=== PATIENT | male | born 1950 | race Caucasian/White ===

== ENCOUNTER 2017-05-28 09:41 | Outpatient (CLI) | payer MEDICARE ==
--- NOTE | 2017-05-28 13:55 | MRI ---
NONCONTRAST ENHANCED MRI CERVICAL SPINE: HISTORY: Patient complaining of neck pain and bilateral hand pain and arm numbness. TECHNIQUE: Multiplanar, multisequence, noncontrast enhanced MRI of the cervical spine obtained. FINDINGS: Images demonstrate a left subcutaneous lipoma, measuring approximately 5.4 x 3.3 cm, within the subcu taneous fat and the left trapezius muscle. The spinal cord demonstrates no evidence of significant cord masses. A small amount of edema is seen in the C3-C4 central cord, compatible with disk osteophyte compression. C1-C2 and C2-C3: Unremarkable. C3-C4: There is a broad-based central disk osteophyte complex compressing the thecal sac, resulting in moderate to severe central spinal stenosis with some mild edema in the central cord at C3-C4. The re is moderate to severe bilateral C3-C4 neural foraminal narrowing due to uncovertebral osteophyte h ypertrophy. C4-C5: Disk desiccation is seen. There is a broad-based disk osteophyte complex centrally, compress ing the thecal sac, resulting in a moderate degree of thecal sac and minimal cord compression. there is moderate bilateral C4-C5 neural foraminal narrowing due to uncovertebral osteophyte hypertrophy. C5-C6: Disk desiccation is seen. There is a broad-based disk osteophyte complex centrally, compress ing the thecal sac. This results in a moderate degree of central and mild left C5-C6 lateral recess stenosis. The right neural foramen is patent. There is moderate left C5-C6 neural foraminal narrowi ng, due to uncovertebral osteophyte hypertrophy. C6-C7: Disk desiccation is seen. There is a broad-based disk osteophyte complex centrally, resultin g in a mild but not significant degree of central stenosis. There is moderate bilateral C6-C7 neural foraminal narrowing due to uncovertebral osteophyte hypertrophy. C7-T1: The central canal is patent. Moderate bilateral C7-T1 neural foraminal narrowing is seen due to uncovertebral osteophyte hypertrophy. IMPRESSION: Multilevel central disk osteophyte complexes. The most significant degree of stenosis appears to be C3-C4 with some stenosis also seen at C4-C5. Multilevel neural foraminal narrowing is also seen. POS: [facility]
== END 2017-05-28 09:42 | disposition home or self-care (01) ==
LOC: MRI 09:41
PROVIDERS: ATTEND Family Medicine
DX: M54.2 Cervicalgia (principal); M48.02 Spinal stenosis, cervical region
CPT/HCPCS: 72141

== ENCOUNTER 2017-07-20 11:04 | Outpatient (CLI) | payer MEDICARE ==
--- NOTE | 2017-07-20 12:25 | RAD ---
FOUR VIEWS CERVICAL SPINE: INDICATIONS: Preoperative evaluation of the cervical spine with history of neck pain and bilateral hand numbness. COMPARISON: MRI cervical spine dated 05/28/2017. FINDINGS: The cervical spine is evaluated to the T1 level, on the Swimmer's lateral projection. There is sligh t anterior translation of C4 on C5 that is accentuated with flexion and reduced with extension. Ther e is advanced disk degenerative disease at C5-C6 and C6-C7. Prevertebral soft tissues are within nor mal limits. No acute fracture is evident. Lateral masses are symmetric. IMPRESSION: Moderate multilevel spondylosis of the cervical spine with slight anterior translation of C4 on C5 th at accentuates with flexion and reduces with extension. POS: [facility]
== END 2017-07-20 11:05 | disposition home or self-care (01) ==
LOC: TBSIIMAG 11:04
PROVIDERS: ATTEND Neurological Surgery
DX: M54.2 Cervicalgia (principal); M47.812 Spondylosis without myelopathy or radiculopathy, cervical region
CPT/HCPCS: 72040

== ENCOUNTER 2017-09-03 08:55 | Outpatient (CLI) | payer MEDICARE ==
[2017-09-03 10:21] LABS: #Eosinphils 0.4 thou/uL (0.0-0.7); #Lymphocytes 1.6 thou/uL (1.20-3.40); #Monocytes 0.6 thou/uL (0.11-0.59); #Neutrophils 8.6 thou/uL (1.40-6.50); %Basophils 0.3 % (0.0-1.0); %Eosinophils 3.2 % (0.0-10.0); %Lymphocytes 14.3 % (21.0-51.0); %Monocytes 5.6 % (0.0-10.0); %Neutrophils 76.7 % (42.0-75.0); Hemoglobin 16.6 g/dL (14.0-18.0); Mean Corpuscular HGB CONC 33.9 g/dL (32.0-36.0); Mean Corpuscular Hemoglobin 30.4 pg (27.0-31.0); Mean Corpuscular Volume 89.7 fl (80.0-94.0); Mean Platelet Volume 6.9 fL (7.4-10.4); Platelet Count 328 thou/uL (130-400); RBC Distribution Width 11.7 % (11.5-14.5); Red Blood Cell (RBC) Count 5.45 mill/uL (4.70-6.10); White Blood Cell (WBC) Count 11.2 thou/uL (4.8-10.8)
[2017-09-03 10:27] LABS: PTT 29.8 SEC (22.9-36.1); Prothrombin Time 13.2 SEC (12.0-14.7)
[2017-09-03 10:39] LABS: Anion Gap 12 mmol/L (10-20); BUN (Urea Nitrogen) 15 mg/dL (8.4-25.7); Calc. Creatinine Clearance 0 mL/min (70-130); Calcium 9.7 mg/dL (7.8-10.44); Carbon Dioxide 26 mmol/L (23-31); Chloride 104 mmol/L (98-107); Estimated GFR-MDRD Greater than 90; Glucose 119 mg/dL (80-115); Potassium 4.4 mmol/L (3.5-5.1); Sodium 138 mmol/L (136-145)
--- NOTE | 2017-09-11 19:45 | EKG ---
Test Reason : Blood Pressure : / mmHG Vent. Rate : 059 BPM Atrial Rate : 059 BPM P-R Int : 210 ms QRS Dur : 106 ms QT Int : 396 ms P-R-T Axes : 047 -67 051 degrees QTc Int : 392 ms Sinus bradycardia with 1st degree A-V block Left anterior fascicular block Inferior infarct (cited on or before 22-NOV-2016) Cannot rule out Anteroseptal infarct , age undetermined Abnormal ECG When compared with ECG of 22-NOV-2016 11:53, No significant change was found Confirmed by GAVI WHITLEY (2) on 09/11/2017 7:44:54 PM Referred By: RUFINO Confirmed By:GAVI WHITLEY
== END 2017-09-03 08:56 | disposition home or self-care (01) ==
LOC: LABBT 08:55
PROVIDERS: ATTEND Neurological Surgery
DX: Z01.810 Encounter for preprocedural cardiovascular examination (principal); Z01.812 Encounter for preprocedural laboratory examination
CPT/HCPCS: 80048; 85025; 85610; 85730; 93005; 93010

== ENCOUNTER 2017-09-05 05:36 | Day surgery (SDC) | payer MEDICARE ==
[2017-09-03 09:21] VITALS: BMI 32.9
--- NOTE | 2017-09-04 21:54 | HP ---
HISTORY OF PRESENT ILLNESS: Mr. Mojica is a 67-year-old male that presents with back pain, dulln ess to sensation in his bilateral hands and has been off balance with heel to toe walk. He has had s ome loss of dexterity in his hands and has had mild weakness in his intrinsic hand muscles. These sy mptoms have been going on for several months, but it seemed to be getting worse. There is nothing th at seems to relieve his symptoms. He is also spastic in the muscles of the lower extremities. He al so often gets lightheaded when extending his neck and looking up. He is mildly hyperreflexic on exam in the upper and lower extremities. He has positive clonus in the feet. Positive Babinski sign. Anastacia milan has been off balance for the past several months. Of note, he has a large lipoma on the left poste rior neck. IMAGING: MRI of the cervical spine at [facility]. REVIEW OF SYSTEMS: Ten-point review of systems completed is otherwise negative unless stated in the above HPI. PAST MEDICAL HISTORY: Hypertension, depression, neuropathy, coronary artery disease, stents, dyslipi demia, alcoholism and ankle fracture. PAST SURGICAL HISTORY: Includes right ankle surgery x2, stents coronary arteries in 2015. HOSPITALIZATIONS: See above. FAMILY HISTORY: Father is , diagnosed with cancer. Mother is , diagnosed with unkno wn. Mother of congestive heart failure. Brother had heart attack at age 60. SOCIAL HISTORY: The patient is a former smoker for 40 years. He quit in 2004. He smoked 1 pack per day. He started drinking whiskey in 2005 and admits to drinking a half gallon every 3 days. 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 Living situation: The patient lives with friend. MEDICATIONS: 1. Taking clonidine HCL 0.1 mg tablet 1 tab orally once a day. 2. Aspirin 81 mg. 3. Ibuprofen 200 mg tablet 1 tablet q.12 hours. 4. Ramipril 10 mg 1 capsule twice a day. 5. Metoprolol tartrate 25 mg capsule twice a day. 6. Pantoprazole sodium 40 mg capsule delayed release 1 tablet orally once a daily. 7. Citalopram hydrobromide 10 mg tablet 1 tablet orally once a day. 8. Atorvastatin calcium 20 mg tablet 1 tablet orally once a day. 9. Isosorbide mononitrate ER 30 mg tablet extended release 24 hours, take 1 tablet daily in the morn ing. 10. Gabapentin 100 mg capsule 1 capsule orally 2 times a day. 11. Amlodipine besylate 5 mg tablet 1 tablet orally once a day. 12. Isosorbide mononitrate. 13. Celexa 10 mg tablet 1 tablet orally once a day. 14. 10 mg capsule 1 capsule twice a day. 15. Metoprolol succinate. 16. Pantoprazole sodium. 17. Aleve. ALLERGIES: No known drug allergies. PHYSICAL EXAMINATION: HEENT: Normocephalic, atraumatic. Hearing intact. Moist mucous membranes. Trachea is midline. EYES: Pupils are equal and reactive to light. Extraocular muscles are intact. Sclerae are white, n onicteric. PSYCHIATRIC: Normal mood and affect. CARDIOVASCULAR/PULMONARY: No cyanosis or clubbing noted. Intact pedal pulses bilaterally. MUSCULOSKELETAL: Lower extremity, 5/5 strength in bilateral iliopsoas, quadriceps, hamstrings, right tibialis anterior, extensor hallucis longus. lower extremity muscles. Nontender to palpation in the midline spine. EXTREMITIES: Upper extremity, 5/5 strength in bilateral biceps and triceps. Hyperreflexic. Full ra nge of motion. Sensory deficits bilaterally in the hands and arms. Positive Lhermitte sign. RESPIRATORY: Even respirations, good effort all lung goel clear with no wheezing or crackles. NEUROLOGIC: Cranial nerves II-XII are grossly intact. Speech is fluent, answers my questions approp riately. Patient is off balance, gait and station positive clonus and positive Babinski's sign. 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 PLAN: Dr. Sanders offered a C3-C5 ACDF with cervical myelopathy. We discussed the risks, benefits , and possible complications of surgery with the patient. The patient fully understands the risk and is willing to proceed with the surgery.
[2017-09-05] MEDS ORDERED: CEFAZOLIN/Water 2 GM/20 ML SYRINGE ONE (06:09)
[2017-09-05] MEDS ORDERED: Sodium Chloride 0.9% 0 ML ONE (06:26)
[2017-09-05] MEDS ORDERED: Thrombin 5000 UNITS/5 ML VIAL ONE (06:26)
[2017-09-05] MEDS ORDERED: Famotidine/PF 20 mg/2ml Vial ONE (06:29)
[2017-09-05] MEDS ORDERED: Phenylephrine HCL 10 MG/ML VIAL ONE (06:29)
[2017-09-05] MEDS ORDERED: Fentanyl 250 MCG/5 ML VIAL ONE ×2 (06:48→10:15)
[2017-09-05] MEDS ORDERED: HYDROmorphone 2 MG/ML VIAL SLOW IVP PRN (09:34)
[2017-09-05] MEDS ORDERED: Morphine Sulfate 2 MG/ML SYRINGE SLOW IVP PRN (09:34)
[2017-09-05] MEDS ORDERED: Promethazine HCl 25 MG/ML VIAL IM PRN (09:34)
[2017-09-05] MEDS ORDERED: Meperidine HCl/PF 25 MG/ML VIAL SLOW IVP PRN (09:34)
[2017-09-05] MEDS ORDERED: Promethazine HCl 25 MG/ML VIAL SLOW IVP PRN (09:34)
[2017-09-05] MEDS ORDERED: Ondansetron HCl/PF 4 MG/2 ML Vial IVP PRN (09:34)
[2017-09-05] MEDS ORDERED: HYDROmorphone 0.5 MG/0.5 ML SYRINGE ONE (09:39)
--- NOTE | 2017-09-05 10:07 | OP ---
DATE OF PROCEDURE: 09/05/2017 SURGEON: Kandice Sanders M.D. SHOW HOST OR HOSTESS: Grey [place] PA-C. PREOPERATIVE INDICATION: Prevent neurological deterioration. PREOPERATIVE DIAGNOSES: Cervical intervertebral disk disease with cord compression and myelopathy, C 3-4 and C4-5. POSTOPERATIVE DIAGNOSES: Cervical intervertebral disk disease with cord compression and myelopathy, C3-4 and C4-5. OPERATIVE PROCEDURE: Anterior cervical diskectomy, intervertebral arthrodesis, placement of interver tebral biomechanical device, anterior cervical plating C3-4, C4-5, local morselized autograft, morsel ized Allograft, and operating microscope. PREOPERATIVE MEDICATION: Ancef 2 grams IV. DRAIN NUMBER: Zero. DRAIN TYPE: None. OPERATIVE DICTATION: The patient was brought to the operating room. Keeping the neck in normal maury omic alignment, general endotracheal anesthesia was induced. The patient was carefully positioned [place] on the operating table with his head supported by a donut shaped head rest. A lateral fluoro ra diograph was used to plan our incision. The right side of the neck was sterilely prepped and draped. We opened with a 10 blade knife and controlled bleeding with bipolar cautery. We dissected sharply to the platysma and cut this muscle in line with our incision. We continued our dissection medial t o the sternocleidomastoid, lateral to the trachea and esophagus all the way to the prevertebral space . We placed a marker at C3-4 and took a lateral fluoro radiograph to confirm the levels upon which w e were operating. We then elevated the longus colli muscles off the anterior surface of C3, C4, and C5. Self-retaining retractors were placed beneath these muscles. We placed distraction pins at C3 a nd C5 and distracted across the two intervening interspaces. We incised the interspaces with a 15-bl jorge knife and removed disk contents using curettes and rongeurs. As we approached the posterior long itudinal ligament, we brought the operating microscope in the field. Under microscopic magnification using microsurgical techniques, we removed the remainder of the inter vertebral disk. We accessed the ventral epidural space with a micro curet and using Kerrison rongeur s, we removed posterior osteophytes and posterior longitudinal ligament across the entire interspace from nerve root to nerve root at both C3-C4 and C4-5. At the completion of the diskectomy, the dura was well decompressed throughout. We then prepared the endplates for grafting using curets and measu red the height of the interspace to 7 mm at both C3-C4 and at C4-5. The osteophytes that had been re moved during decompression were carefully morselized on the back table added to demineralized bone ma trix as our fusion substrate. Two 7 mm PEEK intervertebral grafts were brought into the field loaded with our demineralized bone matrix and morselized autograft and advanced into their respective inter spaces under radiographic guidance to the appropriate depth. The operating microscope was taken away . A 34 mm anterior cervical plate was brought into the field. We drilled highway patrol pilot holes through the pl ate into the vertebral segments at C3, C4, and C5. We affixed the plate using 14 mm screws. We used variable angle screws at C3 and C4 and fixed angle screws at C5. We engaged the locking mechanism o melinda each of the 6 screws. AP and lateral fluoro radiographs confirmed adequate positioning of our in strumentation. We irrigated copiously with bacitracin irrigation. We closed the wound in anatomic l moffett. We applied a sterile dressing. This was a clean case and no contamination.
[2017-09-05] MEDS ORDERED: Sodium Chloride 0.9% 10 ML ONE (10:22)
[2017-09-05] MEDS ORDERED: HYDROcodone/Acetaminophen 5/325 mg Tablet ONE (13:11)
[2017-09-05] MEDS ORDERED: Dexamethasone 20 MG/5 ML VIAL ONE (14:30)
[2017-09-05] MEDS ORDERED: PHENYLEPHRINE-NS 100 MCG/ML 10 ML SYRINGE ONE (14:30)
[2017-09-05] MEDS ORDERED: Glycopyrrolate 0.2 MG/ML 5 ML SYRINGE ONE (14:30)
[2017-09-05] MEDS ORDERED: Ondansetron HCl/PF 4 MG/2 ML Vial ONE (14:30)
[2017-09-05] MEDS ORDERED: Succinylcholine Chloride 20 MG/ML 10 ml SYRINGE FS ONE (14:30)
[2017-09-05] MEDS ORDERED: Lidocaine 1% PF 5 ML VIAL ONE (14:30)
[2017-09-05] MEDS ORDERED: Propofol 200 MG/20 ML VIAL ONE (14:30)
[2017-09-05] MEDS ORDERED: ePHEDrine/0.9% NaCl/PF SYRINGE 50 mg/10 ml ONE (14:30)
== END 2017-09-05 14:10 | disposition home or self-care (01) ==
LOC: SDC 05:36
PROVIDERS: ATTEND Neurological Surgery
PROC: 0RG20A0 Fusion of 2 or more Cervical Vertebral Joints with Interbody Fusion Device, Anterior Approach, Anterior Column, Open Approach (ICD-10-PCS; principal; 2017-09-05)
PROC: 0RG2070 Fusion of 2 or more Cervical Vertebral Joints with Autologous Tissue Substitute, Anterior Approach, Anterior Column, Open Approach (ICD-10-PCS; 2017-09-05)
PROC: 0RG20K0 Fusion of 2 or more Cervical Vertebral Joints with Nonautologous Tissue Substitute, Anterior Approach, Anterior Column, Open Approach (ICD-10-PCS; 2017-09-05)
PROC: 0RT30ZZ Resection of Cervical Vertebral Disc, Open Approach (ICD-10-PCS; 2017-09-05)
DX: M50.01 Cervical disc disorder with myelopathy, high cervical region (principal); G95.20 Unspecified cord compression; M47.12 Other spondylosis with myelopathy, cervical region; I10 Essential (primary) hypertension; F32.9 Major depressive disorder, single episode, unspecified; G62.9 Polyneuropathy, unspecified; I25.10 Atherosclerotic heart disease of native coronary artery without angina pectoris; E78.5 Hyperlipidemia, unspecified; Z87.891 Personal history of nicotine dependence; Z79.82 Long term (current) use of aspirin; Z79.899 Other long term (current) drug therapy; Z98.890 Other specified postprocedural states
CPT/HCPCS: 76001; 96372; A4216; C1713; C1776; J0131; J1100; J1170; J2001; J2370; J2405; J2704; J3010; J3490; S0028

== ENCOUNTER 2017-11-23 14:43 | Outpatient (CLI) | payer MEDICARE ==
--- NOTE | 2017-11-23 15:18 | RAD ---
CERVICAL SPINE SERIES 3 VIEWS: Date: 11/23/17 HISTORY: Follow-up surgery. COMPARISON: Most recent exam available of 07/20/17. FINDINGS: Since the most recent study, the patient has undergone an anterior cervical fusion. There has been pl acement of anterior plate and screws extending from C3-C5. Markers of disc implants are within the co nfines of the intervening disc levels. Disc narrowing is seen at the C5-6 and C6-7 levels. Degenerati ve facet changes are noted. IMPRESSION: Postop changes of the spine. POS: [facility]
== END 2017-11-23 14:44 | disposition home or self-care (01) ==
LOC: TBSIIMAG 14:43
PROVIDERS: ATTEND Neurological Surgery
DX: M54.12 Radiculopathy, cervical region (principal); Z98.1 Arthrodesis status
CPT/HCPCS: 72040

== ENCOUNTER 2019-12-22 06:06 | Outpatient (CLI) | payer MEDICARE, OTHER ==
[2019-12-22 11:29] LABS: #Basophils 0.1 thou/uL (0.0-0.2); #Eosinphils 0.3 thou/uL (0.0-0.7); #Lymphocytes 1.6 thou/uL (1.20-3.40); #Monocytes 0.8 thou/uL (0.11-0.59); #Neutrophils 6.9 thou/uL (1.40-6.50); %Basophils 0.9 % (0.0-1.0); %Eosinophils 3.2 % (0.0-10.0); %Lymphocytes 16.7 % (21.0-51.0); %Monocytes 7.8 % (0.0-10.0); %Neutrophils 71.4 % (42.0-75.0); Hemoglobin 15.7 g/dL (14.0-18.0); Mean Corpuscular HGB CONC 34.9 g/dL (32.0-36.0); Mean Corpuscular Volume 91.8 fL (78.0-98.0); Mean Platelet Volume 7.8 fL (7.4-10.4); Platelet Count 315 thou/uL (130-400); RBC Distribution Width 12.3 % (11.5-14.5); Red Blood Cell (RBC) Count 4.89 mill/uL (4.70-6.10); White Blood Cell (WBC) Count 9.7 thou/uL (4.8-10.8)
[2019-12-22 11:58] LABS: Anion Gap 17 mmol/L (10-20); BUN (Urea Nitrogen) 9 mg/dL (8.4-25.7); Calc. Creatinine Clearance 0 mL/min (70-130); Calcium 9.3 mg/dL (7.8-10.44); Carbon Dioxide 19 mmol/L (23-31); Chloride 105 mmol/L (98-107); Estimated GFR-MDRD 90; Glucose 116 mg/dL (80-115); Potassium 4.4 mmol/L (3.5-5.1); Sodium 137 mmol/L (136-145)
[2019-12-23 12:17] LABS: SARS-CoV-2 MS2 Positive; SARS-CoV-2 N Gene Negative; SARS-CoV-2 S Gene Negative; SARS-CoV-2 orf1ab Negative
== END 2019-12-22 06:07 | disposition home or self-care (01) ==
LOC: LABBT 06:06
PROVIDERS: ATTEND Surgery
DX: Z01.812 Encounter for preprocedural laboratory examination (principal); Z11.59 Encounter for screening for other viral diseases; D17.9 Benign lipomatous neoplasm, unspecified
CPT/HCPCS: 80048; 85025; U0003; 87635

== ENCOUNTER 2020-11-23 13:42 | Outpatient (CLI) | payer MEDICARE | END 2020-11-23 13:43 | disposition home or self-care (01) | LOC: CTENTCT 13:42 | PROVIDERS: ATTEND Otolaryngology Plastic Surgery within the Head & Neck | DX: J32.9 Chronic sinusitis, unspecified (principal) | CPT/HCPCS: 70486 ==